=== PATIENT | female | born 1985 | race Caucasian/White ===

== ENCOUNTER → 2016-08-10 07:18 | Outpatient (CLI) | payer MEDICAID ==
--- NOTE | 2016-08-20 07:21 | EMG ---
PATIENT:GABRIELA REN DATE OF SERVICE: 08/10/16 MEDICAL RECORD: [id number] DATE OF : 87 LOCATION: [facility] ADMISSION DATE: REFERRING PHYSICIAN: HUMPHREY RAINEY MD INTERPRETING PHYSICIAN: HUMPHREY RAINEY MD DATE OF SERVICE: 08/10/2016 Referred by myself as an outpatient. ELECTROMYOGRAPHIC DATA: Electromyographic examination is limited to both lower extremities. In the right lower extremity, right peroneal motor stimulation elicits a compound motor action potential with a distal latency of 4.2 milliseconds, peak amplitude of 3 millivolts, and calculated conduction velocity of 39 meters per second. Right tibial motor stimulation elicits a compound motor action potential with a distal latency of 3.5 milliseconds, peak amplitude of 13 millivolts, and calculated conduction velocity of 41 meters per second. Antidromic right sural sensory stimulation elicits a response with a distal latency of 3.2 milliseconds, amplitude of 4 microvolts and calculated conduction velocity of 40 meters per second. The right lower extremity H reflex recording at gastrocsoleus is not well reproduced, has a latency of 32 milliseconds. In the left lower extremity, left peroneal motor stimulation elicits a compound motor action potential with a distal latency of 3.7 milliseconds, peak amplitude of 4 millivolts, and calculated conduction velocity of 40 meters per second. Left tibial motor stimulation elicits a compound motor action potential with a distal latency of 3.5 milliseconds, peak amplitude of 13 millivolts, and calculated conduction velocity of 39 meters per second. Antidromic left sural sensory stimulation elicits a response with a distal latency of 3.1 milliseconds, amplitude of 2 microvolts and calculated conduction velocity of 40 meters per second. The left lower extremity H reflex recording at gastrocsoleus is also poorly reproduced and has a latency of 32 milliseconds. Needle electrode examination is limited to both lower extremities as well. Muscles interrogated include the abductor hallucis, extensor digitorum brevis, abductor digiti quinti, tibialis anterior, medial gastrocnemius, vastus lateralis, semitendinosis and gluteus jamison. There is no abnormality with insertional activity and no abnormal spontaneous activity is seen in all muscles interrogated. Motor unit potential morphology and the pattern of motor unit potential firing and recruitment is normal in all muscles sampled. 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 There is no electrical evidence of a separate superimposed lumbosacral radiculopathy or other lesion of the lower motor neuron in the lower extremities at this time. There is no evidence of active denervation. TRANSINT:[id number] Voice Confirmation ID: [id number] DOCUMENT ID: [id number] ELECTROMYGRAM/NERVE CONDUCTION [id number] GABRIELA REN DONALD P MD at 0721 CC: [id number] DICTATION DATE: 08/10/16 0831 DIRECTOR OF SOCIAL SERVICES: 08/10/16 0909 [facility] CLI 08/10/[address] [id number]
== END | disposition home or self-care (01) ==
LOC: D.CN 07:18
DX: G60.9 Hereditary and idiopathic neuropathy, unspecified (principal)